=== PATIENT | female | born 1990 | race Caucasian/White ===

== ENCOUNTER 2016-05-14 21:24 | Emergency (ER) | payer MEDICAID, OTHER ==
[~2016-05-14] VITALS: Ht 157.5 cm; Wt 88.0 kg
[~2016-05-14 21:24] MED LIST: IBUP-1542 PO
[2016-05-14 21:39] VITALS: Ht 157.5 cm; Wt 88.0 kg
[2016-05-15] LABS: URINE BLOOD (Dip) POC Negative (NEGATIVE)
[2016-05-15] MEDS ORDERED: LIDOCAINE/MYLANTA 40 ML BTL PO ONE
--- NOTE | 2016-05-15 00:36 | RADRPT ---
PROCEDURE: XR Chest. CLINICAL INDICATION: Chest pain. TECHNIQUE: Portable AP view of the chest was obtained. COMPARISON: None. FINDINGS: The cardiomediastinal silhouette is within normal limits. The lungs are clear. There is no evidenc e for pleural effusion, pneumothorax or pulmonary vascular congestion. The osseous structures are i ntact with no evidence for acute abnormality. RPTAT:HJJR IMPRESSION: No evidence for acute intrathoracic pathology. Physician Roly Date Time Electronically viewed and signed by Physician Roly on 05/15/2016 00:35 JR/
[2016-05-15] MEDS ORDERED: ACET500C5 PO (00:59)
[2016-05-15 01:07] VITALS: BP 120/73; PULSE 64; RESP 20
--- NOTE | 2016-05-15 04:06 | ERD ---
ER Documentation Chief Complaint Date/Time DATE: 05/15/16 TIME: 04:01 Chief Complaint Chest pain radiating to the back since this morning HPI Patient is a 25 year old female who presents with epigastric pain radiating to her mid back. Patient states that the pain started this morning, however has now resolved. Patient states that she did have some shortness of breath when the pain was present, however her shortness of breath has now resolved. Patient denies any arm pain, diaphoresis, nausea, vomiting or LOC. Patient states that she has had this pain in the past, and it resolved by itself. Patient denies taking any medications. Patient reports eating spicy foods. Patient denies any new stress. Patient denies any OCP, recent prolonged sitting, recent travel, recent surgery, DVT or PE. ROS All systems reviewed and are negative except as per history of present illness. Medications Home Meds Active Scripts Acetaminophen* (Tylophen*) 500 Mg Capsule, 1 CAP PO Q6H Y for PAIN AND OR ELEVATED TEMP, #20 CAP Prov:CHRSITIANO WHITAKER PA-C 05/15/16 Ibuprofen* (Ibuprofen*) 600 Mg Tablet, 600 MG PO Q6, #20 TAB 0 Refills Prov:AMEE NOONAN MD 09/08/15 Allergies Allergies: Coded Allergies: No Known Allergy (Unverified , 09/04/15) PMhx/Soc Medical and Surgical Hx: pt denies Medical Hx, pt denies Surgical Hx Hx Alcohol Use: No Hx Substance Use: Yes (marijuana 1x/month) Hx Tobacco Use: No Smoking Status: Never smoker Physical Exam Vitals Vital Signs Date Time Temp Pulse Resp B/P Pulse Ox O2 Delivery O2 Flow Rate FiO2 05/15/16 01:07 64 20 120/73 98 Room Air 05/14/16 21:39 98.1 101 20 131/63 98 Physical Exam GENERAL: Well-developed, well-nourished female. Appears in no acute distress. HEAD: Normocephalic, atraumatic. EYES: Pupils are equally reactive bilaterally. EOMs grossly intact. No conjunctival erythema. ENT: Moist mucous membranes. No uvula deviation. No kissing tonsils. NECK: Supple. No meningismus. Normal range of motion of the neck. LUNG: Clear to auscultation bilaterally. No rhonchi, wheezing, rales or coarse breath sounds. HEART: Regular rate and rhythm. No murmurs, rubs or gallops. ABDOMEN: No scars, ecchymosis or rashes noted. Soft, nontender, and nondistended. Positive bowel sounds in all four quadrants. No rebound tenderness , no guarding. (-) McBurney's point tenderness. No CVA tenderness. BACK: No midline tenderness. EXTREMITIES: Equal pulses bilaterally. No peripheral clubbing, cyanosis or edema. No unilateral leg swelling. NEUROLOGIC: Alert and oriented. Moving all four extremities without any difficulty. Normal speech. Steady gait. SKIN: Normal color. Warm and dry. No rashes or lesions. Results 24 hrs Laboratory Tests Test 05/14/16 23:59 Bedside Urine Blood Negative Bedside Urine Glucose (UA) Negative Bedside Urine Ketones (LAB) Negative Bedside Urine Leukocyte Esterase (L Negative Bedside Urine Nitrite (LAB) Negative Bedside Urine Protein (LAB) Negative Bedside Urine pH (LAB) 7.0 Current Medications Medications (Trade) Dose Ordered Sig/Domenic Route PRN Reason Start Time Stop Time Status Last Admin Dose Admin Miscellaneous Medication (Gi Cocktail (2)) 40 ml ONCE ONCE PO 05/15/16 00:00 05/15/16 00:01 DC 05/15/16 00:06 Procedures/MDM ED COURSE: The patient was stable throughout ED course. I kept the patient and/or family informed of laboratory and diagnostic imaging results throughout the ED course. EKG: Read by Dr. Aldridge, attending physician. EKG shows normal sinus rhythm at a rate of 73 bpm No arrhythmias, acute ST elevations or T wave changes were noted. DIAGNOSTIC IMAGING: Read by radiologist. DIAGNOSTIC IMAGING REPORT Patient: ANAND PATTERSON : 1990 Age: 25 Sex: F MR #: [id number] DOS: 05/14/16 2334 Ordering MD: CHRISTIANO WHITAKER PA-C Location: [facility] Room/Bed: PROCEDURE: XR Chest. CLINICAL INDICATION: Chest pain. TECHNIQUE: Portable AP view of the chest was obtained. COMPARISON: None. FINDINGS: The cardiomediastinal silhouette is within normal limits. The lungs are clear. There is no evidence for pleural effusion, pneumothorax or pulmonary vascular congestion. The osseous structures are intact with no evidence for acute abnormality. RPTAT:HJJR IMPRESSION: No evidence for acute intrathoracic pathology. Physician Roly Date Time Electronically viewed and signed by Physician Roly on 05/15/2016 00:35 JR/ CC: CHRISTIANO WHITAKER PA-C PROCEDURES: None. MEDICATIONS GIVEN: GI Cocktail Patient tolerated medication well with no adverse reactions. MEDICAL DECISION MAKING: This is a 25 year old female who presents with lower chest pain radiating to her back. Patient states the chest pain and shortness of breath has now resolved. Patient denied any leg swelling, recent surgeries, travel, exogenous estrogen use. Vital signs were reviewed. Patient was afebrile. Patient was not hypoxic. Cardiac exam was normal. Lung exam was normal. EKG was within normal limits. Low suspicion for acute coronary syndrome, arrhythmia or pericarditis. CXR was within normal limits. Low suspicion for pneumothorax, pneumonia or pleural effusion. Urine dip was negative for acute infection. Urine was negative. Patient did report some improvement in symptoms after receiving GI cocktail, however she has not that her pain was already improved upon her arrival to the ED. Given these findings, the patient's presentation is most consistent with epigastric pain vs epigastric pain. Low suspicion for PE, DVT, ACS, pericarditis , pneumonia, pneumothorax, pleural effusion, pancreatitis. PRESCRIPTIONS: Tylenol DISCHARGE: At this time, patient is stable for discharge and outpatient management. I have instructed the patient to follow-up with his/her primary care physician in 1-2 days. If symptoms persist, patient may need to see a GI specialist or chemical pumper for further examinations and testing. I have instructed the patient to promptly return to the ER at any time for any new or worsening symptoms including increased increased pain, fever, nausea, vomiting, numbness, weakness, diaphoresis or LOC. The patient and/or family expressed understanding of and agreement with this plan. All questions were answered. Home care instructions were provided. Departure Diagnosis: Primary Impression: Epigastric pain Condition: Stable Patient Instructions: Epigastric Pain (Uncertain Cause) Referrals: COMMUNITY CLINICS YOU HAVE RECEIVED A MEDICAL SCREENING EXAM AND THE RESULTS INDICATE THAT YOU DO NOT HAVE A CONDITION THAT REQUIRES URGENT TREATMENT IN THE EMERGENCY DEPARTMENT. FURTHER EVALUATION AND TREATMENT OF YOUR CONDITION CAN WAIT UNTIL YOU ARE SEEN IN YOUR DOCTORS OFFICE WITHIN THE NEXT 1-2 DAYS. IT IS YOUR RESPONSIBILITY TO MAKE AN APPOINTMENT FOR FOLOW-UP CARE. IF YOU HAVE A PRIMARY DOCTOR --you should call your primary doctor and schedule an appointment IF YOU DO NOT HAVE A PRIMARY DOCTOR YOU CAN CALL OUR PHYSICIAN REFERRAL HOTLINE AT IF YOU CAN NOT AFFORD TO SEE A PHYSICIAN YOU CAN CHOSE FROM THE FOLLOWING [facility] [address] [facility] [address] [facility] [facility] [address] [facility] [address] [facility] [address] [facility]. [facility] [address] [facility]. [facility] YOU HAVE RECEIVED A MEDICAL SCREENING EXAM AND THE RESULTS INDICATE THAT YOU DO NOT HAVE A CONDITION THAT REQUIRES URGENT TREATMENT IN THE EMERGENCY DEPARTMENT. FURTHER EVALUATION AND TREATMENT OF YOUR CONDITION CAN WAIT UNTIL YOU ARE SEEN IN YOUR DOCTORS OFFICE WITHIN THE NEXT 1-2 DAYS. IT IS YOUR RESPONSIBILITY TO MAKE AN APPOINTMENT FOR FOLOW-UP CARE. IF YOU HAVE A PRIMARY DOCTOR --you should call your primary doctor and schedule and appointment IF YOU DO NOT HAVE A PRIMARY DOCTOR YOU CAN CALL OUR PHYSICIAN REFERRAL HOTLINE AT . IF YOU CAN NOT AFFORD TO SEE A PHYSICIAN YOU CAN CHOSE FROM THE FOLLOWING [facility] INSTITUTIONS: [facility] [address] [place] [address] [facility] [address] [place] [address] [facility] [address] [place] [address] Additional Instructions: Call your primary care doctor TOMORROW for an appointment during the next 1-2 days.See the doctor sooner or return here if your condition worsens before your appointment time. CHRISTIANO WHITAKER PA-C May 15, 2016 04:06
== END 2016-05-15 01:09 | disposition home or self-care (01) ==
LOC: FTE 21:24
DX: R10.13 Epigastric pain (principal)
CPT/HCPCS: 71010; 81003; 93005; Z7502; Z7610

== ENCOUNTER 2016-07-31 07:40 | Inpatient (IN) | payer MEDICAID, OTHER ==
[~2016-07-31] VITALS: Ht 157.5 cm; Wt 92.1 kg
[~2016-07-31 07:40] MED LIST changes: +ACET500C5 PO
[2016-07-31] MEDS ORDERED: ONDANSETRON 4 MG INJ IV STA ×2 (08:19→10:26)
[2016-07-31] MEDS ORDERED: FAMOTIDINE 20 MG INJ IV STA (08:19)
[2016-07-31] MEDS ORDERED: morphine 4 MG/ML VIAL IV STA ×2 (08:19→10:26)
--- NOTE | 2016-07-31 08:25 | ERD ---
ER Documentation Chief Complaint Date/Time DATE: 07/31/16 TIME: 08:22 Chief Complaint abd pain, back pain, n/v. hx gastritis HPI This is a 26-year-old female who presents the emergency department today complaining of upper abdominal pain that radiates around her back. States that she has some nausea and vomiting. States that she was told on her last visit that she might have gastritis. States that this is the third time this has happened since she last left the hospital. States she does not have a primary care physician. Denies any fevers or chills, chest pain or shortness of breath. ROS All systems reviewed and are negative except as per history of present illness. Medications Home Meds Active Scripts Acetaminophen* (Tylophen*) 500 Mg Capsule, 1 CAP PO Q6H Y for PAIN AND OR ELEVATED TEMP, #20 CAP Prov:CHRISTIANO WHITAKER PA-C 05/15/16 Ibuprofen* (Ibuprofen*) 600 Mg Tablet, 600 MG PO Q6, #20 TAB 0 Refills Prov:AMEE NOONAN MD 09/08/15 Allergies Allergies: Coded Allergies: No Known Allergy (Unverified , 09/04/15) PMhx/Soc Medical and Surgical Hx: pt denies Medical Hx, pt denies Surgical Hx Hx Alcohol Use: No Hx Substance Use: Yes (marijuana 1x/month) Hx Tobacco Use: No Smoking Status: Never smoker Physical Exam Vitals Vital Signs Date Time Temp Pulse Resp B/P Pulse Ox O2 Delivery O2 Flow Rate FiO2 07/31/16 07:43 97.5 63 20 122/65 98 Physical Exam Const: Obese, no acute distress Head: Atraumatic Eyes: Normal Conjunctiva ENT: Normal External Ears, Nose and Mouth. Neck: Full range of motion..~ No meningismus. Resp: Clear to auscultation bilaterally Cardio: Regular rate and rhythm, no murmurs Abd: Soft, epigastric and right upper quadrant tenderness non distended. Normal bowel sounds. No right lower quadrant pain. No tenderness McBurney's. Skin: No petechiae or rashes Back: No midline or flank tenderness. No CVA tenderness. Ext: No cyanosis, or edema Neur: Awake and alert Psych: Normal Mood and Affect Result Diagram: 07/31/16 0840 07/31/16 0840 Results 24 hrs Laboratory Tests Test 07/31/16 08:32 07/31/16 08:40 Urine Color YELLOW Urine Clarity CLEAR Urine pH 5.5 Urine Specific [place] >=1.030 Urine Ketones TRACE Urine Nitrite NEGATIVE Urine Bilirubin 1+ Urine Ictotest NEGATIVE Urine Urobilinogen 0.2 E.U./dL Urine Leukocyte Esterase NEGATIVE Urine Microscopic RBC 0-2/HPF Urine Microscopic WBC 0-2/HPF Urine Squamous Epithelial Cells FEW Urine Amorphous Urates MODERATE Urine Bacteria OCCASIONAL Urine Mucus OCCASIONAL Urine Hemoglobin TRACE Urine Glucose NEGATIVE% Urine Total Protein 1+ White Blood Count 11.810^3/ul Red Blood Count 4.9310^6/ul Hemoglobin 13.6g/dl Hematocrit 41.9% Mean Corpuscular Volume 85.0fl Mean Corpuscular Hemoglobin 27.6pg Mean Corpuscular Hemoglobin Concent 32.5g/dl Red Cell Distribution Width 13.9% Platelet Count 46383^3/UL Mean Platelet Volume 11.0fl Neutrophils % 82.7% Lymphocytes % 12.2% Monocytes % 3.8% Eosinophils % 0.6% Basophils % 0.3% Nucleated Red Blood Cells % 0.0/100WBC Neutrophils # 9.710^3/ul Lymphocytes # 1.410^3/ul Monocytes # 0.510^3/ul Eosinophils # 0.110^3/ul Basophils # 0.010^3/ul Nucleated Red Blood Cells # 0.010^3/ul Sodium Level 146mmol/L Potassium Level 3.6mmol/L Chloride Level 106mmol/L Carbon Dioxide Level 27mmol/L Anion Gap 17 Blood Urea Nitrogen 8mg/dl Creatinine 0.58mg/dl Glucose Level 112mg/dl Calcium Level 9.6mg/dl Total Bilirubin 0.1mg/dl Direct Bilirubin 0.00mg/dl Indirect Bilirubin 0.1mg/dl Aspartate Amino Transf (AST/SGOT) 25IU/L Alanine Aminotransferase (ALT/SGPT) 57IU/L Alkaline Phosphatase 107IU/L Total Protein 8.6g/dl Albumin 5.1g/dl Globulin 3.50g/dl Albumin/Globulin Ratio 1.45 Lipase 88U/L Current Medications Medications (Trade) Dose Ordered Sig/Domenic Route PRN Reason Start Time Stop Time Status Last Admin Dose Admin Morphine Sulfate (morphine) 4 mg ONCE STAT IV 07/31/16 08:19 07/31/16 08:22 DC 6/4/17 08:41 Ondansetron HCl (Zofran Inj) 4 mg ONCE STAT IV 07/31/16 08:19 07/31/16 08:22 DC 07/31/16 08:41 Famotidine (Pepcid Iv) 20 mg ONCE STAT IV 07/31/16 08:19 07/31/16 08:22 DC 07/31/16 08:41 Miscellaneous Medication (Gi Cocktail (2)) 40 ml ONCE ONCE PO 07/31/16 08:30 07/31/16 08:31 DC 07/31/16 08:41 Morphine Sulfate (morphine) 4 mg ONCE STAT IV 07/31/16 10:26 07/31/16 10:27 DC 07/31/16 10:45 Ondansetron HCl 4 mg 4 mg ONCE STAT IV 07/31/16 10:26 07/31/16 10:27 DC 07/31/16 10:45 Sodium Chloride (NS) 1,000 ml @ 1,000 mls/hr Q1H ONCE IV 07/31/16 10:30 07/31/16 11:29 07/31/16 10:44 DIAGNOSTIC IMAGING REPORT Patient: ANAND PATTERSON : 1990 Age: 26 Sex: F MR #: [id number] DOS: 07/31/16 0819 Ordering MD: JOSR MURO PA-C Location: REPLACED BY [facility] Room/Bed: PROCEDURE: US Abdomen (Right upper quadrant) CLINICAL INDICATION: Abdominal pain. TECHNIQUE: Multiple real-time longitudinal and transverse images were acquired of the patient's right upper quadrant utilizing a curved array transducer. COMPARISON: None. FINDINGS: Liver is normal in size and echogenicity. No focal liver mass. Portal vein demonstrates hepatopetal flow. Gallbladder demonstrate multiple gallstones. There is no gallbladder wall thickening or pericholecystic fluid. There is extrahepatic bile duct dilatation with common bile duct measuring up to 10 mm Pancreas is partially visualized and grossly unremarkable. Right kidney demonstrates no hydronephrosis or nephrolithiasis. No ascites. Proximal aorta and IVC are unremarkable. MEASUREMENTS: Liver: 15.5 cm Common Duct: 1.0 cm Right Kidney: 10.3 cm IMPRESSION: Sludge/small stones in the gallbladder without gallbladder wall thickening or inflammation. Indeterminate extrahepatic bile duct dilatation with common bile duct measuring up to 10 mm. Consider MRCP, especially if correlation with LFTs suggest cholestasis. RPTAT: EE .Arnoldo Yeh MD, Date Time Electronically viewed and signed by .Arnoldo Yeh MD, on 07/31/2016 09:24 .C/ CC: JOSR MURO PA-C Procedures/[facility] This 26-year-old female who presents to the emergency department today complaining of abdominal pain that radiates around to her back. Upon review of patient's medical records patient was seen here May 14, 2016 with similar symptoms however she appeared to be complaining somewhat more of chest and back pain at that time and an x-ray was done of her chest that was negative. Patient had been given a GI cocktail as well. Today on physical exam patient has some epigastric and right upper quadrant pain. I did obtain laboratory work as well as an ultrasound Laboratory work shows a mildly elevated white blood cell count. She is not anemic. Platelets are within normal limits. Sodium is mildly elevated otherwise electrolytes are within normal limits. Glucose is within normal limits. Liver functions within normal limits. Bilirubin is not elevated. Lipase is within normal limits. Alk phos is within normal limits. UA is negative for infection. Urine test is negative. Right upper quadrant ultrasound shows sludge and small stones in the gallbladder without gallbladder wall thickening or inflammation. There is indeterminate extrahepatic bile duct dilatation with common bile duct measuring up to 10 mm. Consider MRCP especially correlation with LFTs suggest: cholestasis Patient symptoms at this time is consistent with gallstones and likely choledocholithiasis. Patient was given morphine, IV fluids, Pepcid, Zofran, GI cocktail here in the emergency department and symptoms persisted. I discussed the patient with Dr. Nelson he has recommended that the patient be admitted for MRCP. Dr. Nelson asked me to call the admitting panel physician. I spoke to Dr. Gita Yang who has accepted the patient. She does not feel that GI specialist needs to be called immediately. She will notify Dr. Contreras and Dr. Contreras will see the patient here in the ER. I have explained all results to the patient and patient has agreed to be admitted. Patient will be admitted to [facility]. Any further orders placed or documentation will be placed by Dr. Nelson or the admitting physician Departure Diagnosis: Primary Impression: Gallstones Additional Impression: Choledocholithiasis Condition: JOSR Reilly PA-C Jul 31, 2016 08:25
[2016-07-31] MEDS ORDERED: LIDOCAINE/MYLANTA 40 ML BTL PO ONE (08:30)
[2016-07-31 08:51] LABS: ADD SCAN DIFF NO
[2016-07-31 09:01] LABS: BASOPHILS % 0.3 % (0.0-2.0); EOSINOPHILS # 0.1 10^3/ul (0.0-0.5); EOSINOPHILS % 0.6 % (0.0-7.0); HEMATOCRIT 41.9 % (37.0-47.0); HEMOGLOBIN 13.6 g/dl (12.0-16.0); LYMPHOCYTES # 1.4 10^3/ul (0.8-2.9); LYMPHOCYTES % 12.2 % (15.0-51.0); MEAN CORPUSCULAR HEMOGLOBIN 27.6 pg (29.0-33.0); MEAN CORPUSCULAR HGB CONC 32.5 g/dl (32.0-37.0); MONOCYTE # 0.5 10^3/ul (0.3-0.9); MONOCYTES % 3.8 % (0.0-11.0); NEUTROPHIL # 9.7 10^3/ul (1.6-7.5); NEUTROPHILS % 82.7 % (39.0-77.0); PLATELET COUNT 304 10^3/UL (140-415); RED BLOOD COUNT 4.93 10^6/ul (4.20-5.40); RED CELL DISTRIBUTION WIDTH 13.9 % (11.5-14.5); WHITE BLOOD COUNT 11.8 10^3/ul (4.8-10.8)
[2016-07-31 09:07] LABS: ADD UMIC YES; URINE BILIRUBIN (Dip) 1+ (NEGATIVE); URINE BLOOD (Dip) TRACE (NEGATIVE); URINE COLOR YELLOW (YELLOW); URINE GLUCOSE (Dip) NEGATIVE (NEGATIVE); URINE KETONES (Dip) TRACE (NEGATIVE); URINE LEUKOCYTE ESTERASE (Dip) NEGATIVE (NEGATIVE); URINE NITRITE (Dip) NEGATIVE (NEGATIVE); URINE TOTAL PROTEIN (Dip) 1+ (NEGATIVE); URINE UROBILINOGEN (Dip) 0.2 E.U./dL (0.1-1.0)
--- NOTE | 2016-07-31 09:19 | RADRPT ---
PROCEDURE: US Abdomen (Right upper quadrant) CLINICAL INDICATION: Abdominal pain. TECHNIQUE: Multiple real-time longitudinal and transverse images were acquired of the patient's ri ght upper quadrant utilizing a curved array transducer. COMPARISON: None. FINDINGS: Liver is normal in size and echogenicity. No focal liver mass. Portal vein demonstrates hepatopetal flow. Gallbladder demonstrate multiple gallstones. There is no gallbladder wall thickening or pericholecy stic fluid. There is extrahepatic bile duct dilatation with common bile duct measuring up to 10 mm Pancreas is partially visualized and grossly unremarkable. Right kidney demonstrates no hydronephrosis or nephrolithiasis. No ascites. Proximal aorta and IVC are unremarkable. MEASUREMENTS: Liver: 15.5 cm Common Duct: 1.0 cm Right Kidney: 10.3 cm IMPRESSION: Sludge/small stones in the gallbladder without gallbladder wall thickening or inflammation. Indeterminate extrahepatic bile duct dilatation with common bile duct measuring up to 10 mm. Consid er MRCP, especially if correlation with LFTs suggest cholestasis. RPTAT: EE .Arnoldo Yeh MD, Date Time Electronically viewed and signed by .Arnoldo Yeh MD, on 07/31/2016 09:24 .C/
[2016-07-31 09:20] LABS: ALBUMIN 5.1 g/dl (3.3-4.9); ALBUMIN/GLOBULIN RATIO 1.45; BILIRUBIN,INDIRECT 0.1 mg/dl (0-1.1); BILIRUBIN,TOTAL 0.1 mg/dl (0.2-1.3); CALCIUM 9.6 mg/dl (8.4-10.2); CREATININE 0.58 mg/dl (0.44-1.00); POTASSIUM 3.6 mmol/L (3.5-5.1); TOTAL PROTEIN 8.6 g/dl (6.1-8.1)
[2016-07-31 09:40] LABS: ICTOTEST NEGATIVE (NEGATIVE); SQUAMOUS EPITHELIAL CELL,UR FEW; URINE RBCS 0-2 /HPF (0)
[2016-07-31 09:41] LABS: BACTERIA,URINE OCCASIONAL; MUCUS,URINE OCCASIONAL
[2016-07-31] MEDS ORDERED: SOD CHLORIDE 0.9% 1,000 ML IV ONE (10:30)
--- NOTE | 2016-07-31 14:36 | HP ---
Date/Time of Note Date/Time of Note DATE: 07/31/16 TIME: 14:29 Assessment/Plan VTE Prophylaxis VTE Prophylaxis Intervention: ambulation, SCD's Assessment/Plan Assessment/Plan 26-year-old female who presents with epigastric/upper abdominal pain managed for the followin. Acute abdominal pain likely secondary to #2 #2 2. Cholelithiasis with common bile duct dilatation rule out choledocholithiasis * There is no evidence of gallbladder wall thickening or pericholecystic fluid to suggest cholecystitis 3. Uricosuria rule out gout 4. Ketonuria likely secondary to dehydration from nausea and vomiting 5. Mild leukocytosis likely reactive 6. Social marijuana use PLAN: * Admit / IVF / CLD / MRCP / Uric acid levels * Surgical consult and probable GI consult * PRN pain control/ antiemetics/ antipyretics/ supportive care Further interventions per clinical course HPI/ROS Admit Date/Time Admit Date/Time July 31, 2016 Hx of Present Illness PRESENTING COMPLAINT: abd pain HISTORY OF PRESENTING COMPLAINT:This is a 26-year-old female who presented to the ER with abdominal pain that has been going on since April 2017. The patient was seen here back in April diagnosed with gastritis patient states since then she has been having on and off abdominal pain. Pain is located in her epigastric region and radiates to her back. It is associated with nausea and vomiting. She however denies black stools or blood in her stool, she also denies blood in her vomit. She denies fever denies chest pain, denies shortness of breath. ROS ROS: CONSTITUTIONAL: denies fever, chills, weight loss, weight gain HEENT: denies headaches, any vertigo, any sore throat or rhinorrhea. Eyes: No double or blurred vision or eye pain. CARDIOVASCULAR: no chest discomfort, chest pain, irregular rhythm, tachycardia or diaphoresis. RESPIRATORY: denies cough or shortness of breath or wheezing. GENITOURINARY: denies dysuria, frequency, urgency or hematuria. MUSCULOSKELETAL: also denies myalgias, arthralgias or edema. SKIN: denies rash or jaundice NEUROLOGIC: denies weakness, dizziness, focal neurological change or headache. PSYCHIATRIC: denies history of depression in the past, any suicidal ideation. substance abuse. ENDOCRINE: denies polyuria, polydipsia or hot or cold intolerance. HEMATOLOGIC: denies history of easy bruising, anemia or eczema. PMH/Family/Social Past Medical History Medical History: no pertinent history Past Surgical History Past Surgical Hx: no surgical history Family History Significant Family History: no pertinent family hx Social History Alcohol Use: none Smoking Status: Never smoker Drug Use: marijuana Exam/Review of Systems Vital Signs Vitals VS - Last 72 Hours, by Label Date Time Temp Pulse Resp B/P Pulse Ox O2 Delivery O2 Flow Rate FiO2 07/31/16 12:17 62 18 111/56 98 Room Air 07/31/16 10:45 75 18 105/51 98 Room Air 07/31/16 07:43 97.5 63 20 122/65 98 Vital Signs Date Time Temp Pulse Resp B/P Pulse Ox O2 Delivery O2 Flow Rate FiO2 07/31/16 12:17 62 18 111/56 98 Room Air 07/31/16 07:43 97.5 Exam Exam GENERAL: Patient is alert, oriented x 3, in no apparent distress; does not appear acutely or chronically ill. Patient is able to sit up unassisted.Patient makes good eye contact, is conversant, interactive, coherent. Patient appears calm and comfortable and is able to follow commands. HEENT: Oropharynx is clear. There is no carotid bruit, no masses. Patient's pupils are equal, round and reactive to light bilaterally. Extraocular motions are intact. There is no scleral icterus. There is no facial asymmetry. NECK: Supple. LUNGS: Clear to auscultation bilaterally with good air entry. No Wheezes or crackles. HEART: S1, S2. No murmur, gallops or rubs. Regular rate and rhythm. ABDOMEN: Soft, epigastric and right upper quadrant tenderness non distended. Normal bowel sounds. No right lower quadrant pain. No tenderness McBurney's. BACK: no costovertebral angle tenderness. GENITOURINARY: Deferred. EXTREMITIES: No edema. There is no cyanosis, clubbing. There are 2+ pulses bilaterally distally. NEUROLOGIC: The patient has no lateralizing signs. Cranial nerves II-XII are intact. SKIN: Otherwise, unremarkable. Labs Result Diagram: 07/31/16 0840 07/31/16 0840 Procedures Procedures Laboratory Tests Test 07/31/16 08:32 07/31/16 08:40 Urine Color YELLOW Urine Clarity CLEAR Urine pH 5.5 Urine Specific [place] >=1.030 Urine Ketones TRACE Urine Nitrite NEGATIVE Urine Bilirubin 1+ Urine Ictotest NEGATIVE Urine Urobilinogen 0.2 E.U./dL Urine Leukocyte Esterase NEGATIVE Urine Microscopic RBC 0-2/HPF Urine Microscopic WBC 0-2/HPF Urine Squamous Epithelial Cells FEW Urine Amorphous Urates MODERATE Urine Bacteria OCCASIONAL Urine Mucus OCCASIONAL Urine Hemoglobin TRACE Urine Glucose NEGATIVE% Urine Total Protein 1+ White Blood Count 11.810^3/ul Red Blood Count 4.9310^6/ul Hemoglobin 13.6g/dl Hematocrit 41.9% Mean Corpuscular Volume 85.0fl Mean Corpuscular Hemoglobin 27.6pg Mean Corpuscular Hemoglobin Concent 32.5g/dl Red Cell Distribution Width 13.9% Platelet Count 95926^3/UL Mean Platelet Volume 11.0fl Neutrophils % 82.7% Lymphocytes % 12.2% Monocytes % 3.8% Eosinophils % 0.6% Basophils % 0.3% Nucleated Red Blood Cells % 0.0/100WBC Neutrophils # 9.710^3/ul Lymphocytes # 1.410^3/ul Monocytes # 0.510^3/ul Eosinophils # 0.110^3/ul Basophils # 0.010^3/ul Nucleated Red Blood Cells # 0.010^3/ul Sodium Level 146mmol/L Potassium Level 3.6mmol/L Chloride Level 106mmol/L Carbon Dioxide Level 27mmol/L Anion Gap 17 Blood Urea Nitrogen 8mg/dl Creatinine 0.58mg/dl Glucose Level 112mg/dl Calcium Level 9.6mg/dl Total Bilirubin 0.1mg/dl Direct Bilirubin 0.00mg/dl Indirect Bilirubin 0.1mg/dl Aspartate Amino Transf (AST/SGOT) 25IU/L Alanine Aminotransferase (ALT/SGPT) 57IU/L Alkaline Phosphatase 107IU/L Total Protein 8.6g/dl Albumin 5.1g/dl Globulin 3.50g/dl Albumin/Globulin Ratio 1.45 Lipase 88U/L Current Medications Medications (Trade) Dose Ordered Sig/Domenic Route PRN Reason Start Time Stop Time Status Last Admin Dose Admin Morphine Sulfate (morphine) 4 mg ONCE STAT IV 07/31/16 08:19 07/31/16 08:22 DC 07/31/16 08:41 4 MG Ondansetron HCl (Zofran Inj) 4 mg ONCE STAT IV 07/31/16 08:19 07/31/16 08:22 DC 07/31/16 08:41 4 MG Famotidine (Pepcid Iv) 20 mg ONCE STAT IV 07/31/16 08:19 07/31/16 08:22 DC 07/31/16 08:41 20 MG Miscellaneous Medication (Gi Cocktail (2)) 40 ml ONCE ONCE PO 07/31/16 08:30 07/31/16 08:31 DC 07/31/16 08:41 40 ML Morphine Sulfate (morphine) 4 mg ONCE STAT IV 07/31/16 10:26 07/31/16 10:27 DC 07/31/16 10:45 4 MG Ondansetron HCl 4 mg 4 mg ONCE STAT IV 07/31/16 10:26 07/31/16 10:27 DC 07/31/16 10:45 4 MG Sodium Chloride (NS) 1,000 ml @ 1,000 mls/hr Q1H ONCE IV 07/31/16 10:30 07/31/16 11:29 DC 07/31/16 10:44 1,000 MLS/HR PROCEDURE: US Abdomen (Right upper quadrant) CLINICAL INDICATION: Abdominal pain. TECHNIQUE: Multiple real-time longitudinal and transverse images were acquired of the patient's right upper quadrant utilizing a curved array transducer. COMPARISON: None. FINDINGS: Liver is normal in size and echogenicity. No focal liver mass. Portal vein demonstrates hepatopetal flow. Gallbladder demonstrate multiple gallstones. There is no gallbladder wall thickening or pericholecystic fluid. There is extrahepatic bile duct dilatation with common bile duct measuring up to 10 mm Pancreas is partially visualized and grossly unremarkable. Right kidney demonstrates no hydronephrosis or nephrolithiasis. No ascites. Proximal aorta and IVC are unremarkable. MEASUREMENTS: Liver: 15.5 cm Common Duct: 1.0 cm Right Kidney: 10.3 cm IMPRESSION: Sludge/small stones in the gallbladder without gallbladder wall thickening or inflammation. Indeterminate extrahepatic bile duct dilatation with common bile duct measuring up to 10 mm. Consider MRCP, especially if correlation with LFTs suggest cholestasis. RPTAT: EE .Arnoldo Yeh MD, MD Date Time Electronically viewed and signed by .Arnoldo Yeh MD, on 07/31/2016 09:24 .C/ CC: JOSR MURO PA-C, BOLATITO M. Jul 31, 2016 14:36
[2016-07-31 17:45] VITALS: BP 114/65; PULSE 70; RESP 18
[2016-07-31] MEDS ORDERED: HYDROCODONE/APAP (5/325) TAB PO PRN (18:30)
[2016-07-31] MEDS ORDERED: MAGNESIUM HYDROXIDE 30ML CUP PO PRN (18:30)
[2016-07-31] MEDS ORDERED: ONDANSETRON 4 MG TAB PO PRN (18:30)
[2016-07-31] MEDS ORDERED: ONDANSETRON 4 MG INJ IV PRN (18:30)
[2016-07-31] MEDS ORDERED: ACETAMINOPHEN 325 MG TAB PO PRN (18:30)
[2016-07-31] MEDS ORDERED: NACL 0.9% 3 ML SYG IV SCH (18:30)
[2016-07-31] MEDS ORDERED: BISACODYL (EC) 5 MG TAB PO PRN (18:30)
[2016-07-31] MEDS ORDERED: DOCUSATE SODIUM 100 MG CAP PO PRN (18:30)
[2016-07-31] MEDS ORDERED: morphine 2 MG INJ IV PRN (18:30)
[2016-07-31] MEDS: SOD CHLORIDE 0.9% 1,000 ML IV SCH (18:39)
[2016-07-31 19:22] VITALS: BP 102/57; RESP 18
[2016-07-31 21:00] VITALS: Ht 157.5 cm; Wt 92.1 kg
[2016-08-01] MEDS: SOD CHLORIDE 0.9% 1,000 ML IV SCH ×2 (04:22→13:03)
[2016-08-01 07:08] LABS: ADD SCAN DIFF NO
[2016-08-01 07:17] LABS: BASOPHILS % 0.5 % (0.0-2.0); EOSINOPHILS # 0.3 10^3/ul (0.0-0.5); EOSINOPHILS % 3.8 % (0.0-7.0); HEMATOCRIT 35.6 % (37.0-47.0); HEMOGLOBIN 11.6 g/dl (12.0-16.0); LYMPHOCYTES # 2.3 10^3/ul (0.8-2.9); LYMPHOCYTES % 30.9 % (15.0-51.0); MEAN CORPUSCULAR HEMOGLOBIN 28.4 pg (29.0-33.0); MEAN CORPUSCULAR HGB CONC 32.6 g/dl (32.0-37.0); MEAN PLATELET VOLUME 11.2 fl (7.4-10.4); MONOCYTE # 0.5 10^3/ul (0.3-0.9); MONOCYTES % 6.7 % (0.0-11.0); NEUTROPHIL # 4.3 10^3/ul (1.6-7.5); NEUTROPHILS % 57.8 % (39.0-77.0); PLATELET COUNT 228 10^3/UL (140-415); RED BLOOD COUNT 4.09 10^6/ul (4.20-5.40); RED CELL DISTRIBUTION WIDTH 13.9 % (11.5-14.5); WHITE BLOOD COUNT 7.4 10^3/ul (4.8-10.8)
[2016-08-01 07:39] VITALS: BP 111/55; RESP 19
[2016-08-01 07:44] LABS: ALBUMIN 3.7 g/dl (3.3-4.9); BILIRUBIN,INDIRECT 0.1 mg/dl (0-1.1); BILIRUBIN,TOTAL 0.1 mg/dl (0.2-1.3); CALCIUM 8.6 mg/dl (8.4-10.2); CHOL/HDL RATIO 5.6 RATIO; CREATININE 0.63 mg/dl (0.44-1.00); MAGNESIUM 1.9 mg/dl (1.7-2.5); TOTAL PROTEIN 6.3 g/dl (6.1-8.1); URIC ACID 3.7 mg/dl (3.1-7.9)
[2016-08-01] MEDS ORDERED: ENOXAPARIN 40 MG/0.4 ML SYG SC SCH (09:00)
--- NOTE | 2016-08-01 14:30 | RADRPT ---
PROCEDURE: MR Abdomen and MRCP. CLINICAL INDICATION: Dilated bile duct. TECHNIQUE: MRI abdomen without contrast and MRCP was performed on a high field scanner. 3-D coron al rotating MIP images of the biliary tree are available for review. COMPARISON: Correlation with ultrasound from 07/31/2016. FINDINGS: MRI Abdomen: The liver is normal in size and homogeneous in signal intensity. There is normal signal intensity w ithin the liver. No liver mass lesion or intrahepatic biliary dilatation is seen. The spleen is no rmal in size and homogeneous in signal intensity. The stomach is partially collapsed but grossly un remarkable. The pancreas, as visualized, is equally unremarkable. No pancreatic lesion is seen. T he adrenal glands and kidneys are symmetrically normal. The aorta is of normal caliber. There is n o retroperitoneal lymphadenopathy. The bowel and mesentery, as visualized, are all unremarkable. MRCP: Multiple small stones are present within the gallbladder measuring up to 4 mm in diameter. No peric holecystic inflammatory changes seen. The gallbladder is not distended. The biliary tree is not dila nick. No intrahepatic nor extrahepatic biliary dilatation is present. The proximal common bile duct measures 4 mm in diameter and tapers smoothly towards the ampulla. The pancreatic duct is not dila nick. IMPRESSION: Cholelithiasis without evidence of cholecystitis, choledocholithiasis, or biliary obstruction. The previously seen CBD dilatation has resolved and may have been secondary to recently passed biliary c alculus. RPTAT: JJ .Raghavendra Cantor MD, Date Time Electronically viewed and signed by .Raghavendra Cantor MD, MD on 08/01/2016 14:29 .A/
--- NOTE | 2016-08-01 16:25 | PDOCDIS ---
Discharge Instructions CONDITION Patient Condition: Good HOME CARE INSTRUCTIONS: Diet Instructions: Regular ACTIVITY: Activity Restrictions: No Restrictions FOLLOW UP/APPOINTMENTS Appointments FOLLOW UP WITH YOUR PRIMARY CARE PHYSICIAN IN 1-2 WEEKS FLAVIA ANGLIN Aug 01, 2016 16:24
--- NOTE | 2016-08-01 17:40 | CONS ---
Date/Time of Note Date/Time of Note DATE: 08/01/16 TIME: 17:31 Assessment/Plan Assessment/Plan Additional Assessment/Plan Assessment: Recurrent right upper quadrant/epigastric pain Symptomatic cholelithiasis/no evidence of choledocholithiasis Moderate obesity Plan: Considered cholecystectomy for patient with recurrent symptoms and evidence of cholelithiasis HIDA scan Surgical consult Consultation Date/Type/Reason Admit Date/Time July 31, 2016 Date of Consultation: Aug 01, 2016 Type of Consultation: Gastroenterology Reason for Consultation Right upper quadrant/epigastric abdominal pain Hx of Present Illness 26-year-old female hospitalized with complaints of epigastric abdominal pain radiating towards the right upper quadrant and back. The patient reports this pain has been recurrent over the last few years has been told to have gastritis and has been treated with ibuprofen and antacids to control the pain. She has never had endoscopic evaluation. On this occasion she had an ultrasound that showed cholelithiasis and initially dilated common bile duct. An MRCP was obtained MRCP disclose no evidence of choledocholithiasis or dilatation of the biliary tree furthermore the liver function tests have been entirely normal throughout her hospitalization. The patient reports symptomatic improvement but given her recurrent history it would be advisable to address what appears to be symptomatic cholelithiasis. Constitutional: improved, no complaints Eyes: no complaints ENT: no complaints Respiratory: no complaints Cardiovascular: no complaints Gastrointestinal: No constipation, No decreased appetite, No diarrhea, No nausea, No pain, No vomiting Genitourinary: no complaints Musculoskeletal: no complaints Skin: no complaints Neurologic: no complaints Endocrine: no complaints Lymphatic: no complaints Psychological: nl mood/affect, no complaints Immunologic: no complaints Past Medical History Medical History: no pertinent history Past Surgical History Past Surgical Hx: no surgical history Family History Significant Family History: no pertinent family hx Social History Alcohol Use: none Smoking Status: Never smoker Drug Use: none, marijuana Exam/Review of Systems Vital Signs Vitals Vital Signs Date Time Temp Pulse Resp B/P Pulse Ox O2 Delivery O2 Flow Rate FiO2 08/01/16 07:39 98.5 69 19 111/55 96 07/31/16 17:45 Room Air Intake and Output 07/31/16 07/31/16 08/01/16 15:00 23:00 07:00 Intake Total 1650 ml Balance 1650 ml Exam Constitutional: alert, obese, oriented, well developed Head: atraumatic, normocephalic Eyes: EOMI, PERRL, nl conjunctiva, nl lids, nl sclera Neck: non-tender, supple Respiratory: clear to auscultation, normal air movement Cardiovascular: nl pulses, regular rate and rhythm Gastrointestinal: bowel sounds, non-tender, soft, No distended, No mass, No rebound or guarding Musculoskeletal: nl extremities to inspection Extremities: normal pulses Skin: nl turgor, No rash or lesions Lymph: nl lymph nodes Results Result Diagram: 08/01/1661908/01/16 0620 Results 24 hrs Laboratory Tests Test 08/01/16 06:20 White Blood Count 7.4 # Red Blood Count 4.09 L Hemoglobin 11.6 L Hematocrit 35.6 L Mean Corpuscular Volume 87.0 Mean Corpuscular Hemoglobin 28.4 L Mean Corpuscular Hemoglobin Concent 32.6 Red Cell Distribution Width 13.9 Platelet Count 228 # Mean Platelet Volume 11.2 H Neutrophils % 57.8 Lymphocytes % 30.9 Monocytes % 6.7 Eosinophils % 3.8 Basophils % 0.5 Nucleated Red Blood Cells % 0.0 Neutrophils # 4.3 Lymphocytes # 2.3 Monocytes # 0.5 Eosinophils # 0.3 Basophils # 0.0 Nucleated Red Blood Cells # 0.0 Sodium Level 143 Potassium Level 4.0 Chloride Level 108 Carbon Dioxide Level 28 Anion Gap 11 Blood Urea Nitrogen 6 L Creatinine 0.63 Glucose Level 83 Uric Acid 3.7 Calcium Level 8.6 Magnesium Level 1.9 Total Bilirubin 0.1 L Direct Bilirubin 0.00 Indirect Bilirubin 0.1 Aspartate Amino Transf (AST/SGOT) 18 Alanine Aminotransferase (ALT/SGPT) 43 Alkaline Phosphatase 74 Total Protein 6.3 # Albumin 3.7 # Triglycerides Level 119 Cholesterol Level 129 LDL Cholesterol, Calculated 82 HDL Cholesterol 23 L Cholesterol/HDL Ratio 5.6 Medications Medications Current Medications Ondansetron HCl (Zofran Tab) 4 mg Q6H PRN PO NAUSEA AND/OR VOMITING; Start 07/31 at 18:30 Ondansetron HCl (Zofran Inj) 4 mg Q6H PRN IV NAUSEA AND/OR VOMITING; Start 07/31 at 18:30 Acetaminophen (Tylenol Tab) 650 mg Q6H PRN PO PAIN LEVEL 1-3 OR FEVER Last administered on 07/31/16t 21:08; Admin Dose 650 MG; Start 07/31/16 at 18:30 Acetaminophen/ Hydrocodone Bitart ([place] (5/325)) 1 tab Q6H PRN PO MODERATE PAIN LEVEL 4-6; Start 07/31/16 at 18:30 Morphine Sulfate (morphine) 2 mg Q4H PRN IV SEVERE PAIN LEVEL 7-10; Start at 18:30 Docusate Sodium (Colace) 100 mg Q12H PRN PO CONSTIPATION; Start 07/31/16 at 18: 30 Magnesium Hydroxide (Milk Of Mag) 30 ml DAILY PRN PO CONSTIPATION; Start at 18:30 Bisacodyl (Dulcolax) 5 mg DAILY PRN PO CONSTIPATION; Start 07/31/16 at 18:30 Enoxaparin Sodium 40 mg 40 mg DAILY SC ; Start 08/01/16 at 09:00 Sodium Chloride (NS) 1,000 ml @ 125 mls/hr Q8H IV Last administered on t 13:03; Admin Dose 125 MLS/HR; Start 07/31/16 at 18:30 Pantoprazole (Protonix Iv) 40 mg DAILY@06 IV ; Start 08/02/16 at 06:00 COURTNEY MCCLELLAND MD Aug 01, 2016 17:40
--- NOTE | 2016-08-01 21:38 | DS ---
DATE OF ADMISSION: 07/31/2016 DATE OF DISCHARGE: 08/01/2016 DISCHARGE DIAGNOSES: 1. Abdominal pain, likely secondary to choledocholithiasis, now resolved with likely passing of valerie iary stone. 2. Obesity. Lifestyle changes advised. 3. Cholelithiasis. No evidence cholecystitis. Cleared for discharge per Surgery. 4. Dehydration secondary to nausea, vomiting, now resolved. HOSPITAL COURSE: The patient is a 26-year-old female with a history of obesity, otherwise no signif icant medical history. The patient presents with abdominal pain. The patient presents with epigast ellis pain that radiates to the back. The patient had a gallbladder ultrasound that showed sludge, sm all stones in the gallbladder without gallbladder wall thickening or inflammation. There is indeter minate bile duct dilation. The patient had an MRCP that showed cholelithiasis without evidence of c holecystitis, choledocholithiasis or biliary obstruction. Previously seen CBD dilation resolved, ma ybe secondary to recently passed biliary calculus. The patient did have mild leukocytosis. She had no elevation of LFTs. Her UA was within normal limits. The patient's abdominal pain did resolve. She was felt to be stable for discharge. The patient was seen by Dr. Garcia of Surgery, and patien t was felt to be clear for discharge per Dr. Garcia with recommendations for an outpatient cholecyst ectomy. On day of discharge, the patient's vital signs, labs, physical exam were stable. The patie nt had no acute complaints. Questions were answered. CONDITION ON DISCHARGE: Stable. DISPOSITION: Home. MEDICATIONS: The patient is continue usual home medications. No new medications prescribed. FOLLOWUP: The patient is to follow up with her PCP in 1 to 2 weeks, and she will be evaluated for a n outpatient cholecystectomy. Greater than 30 minutes was spent coordinating discharge of patient. Dictated By: FLAVIA ANGLIN MD BS/NTS Conf#: [id number] DID#: [id number]
[2016-08-02] MEDS ORDERED: PANTOPRAZOLE 40 MG INJ IV SCH (06:00)
--- NOTE | 2016-08-02 07:34 | CONS ---
DATE OF ADMISSION: 07/31/2016 DATE OF CONSULTATION: 08/01/2016 HISTORY OF PRESENT ILLNESS: Ms. Vizcaino is a 26-year-old female who presented to the ER yesterda y with epigastric pain radiating to her back. She had some nausea and emesis. She had similar symp toms 2 months ago and was told that she possibly had gastritis. She denies fevers, chills or night sweats. This morning she is feeling well and has no symptoms. PAST MEDICAL HISTORY: Noncontributory. PAST SURGICAL HISTORY: None. MEDICATIONS: She takes: 1. Acetaminophen. 2. Ibuprofen. ALLERGIES: NO KNOWN DRUG ALLERGIES. PHYSICAL EXAMINATION: GENERAL: She is a well-nourished, well-developed female in no apparent distress. VITAL SIGNS: She is afebrile. Vital signs stable. CHEST: Clear to auscultation bilaterally. HEART: Regular rhythm. ABDOMEN: Soft, nontender, nondistended. LABORATORY DATA: Reveal a white count of , hematocrit of 35, platelets of 228. Sodium is 143, potassium 4, chloride 108, CO2 of 28, BUN and creatinine are . LFTs are within normal limits. IMAGING: Ultrasound reveals sludge, small stones in the gallbladder without gallbladder thickening or inflammation. Indeterminate extrahepatic bile duct dilatation with common bile duct measuring 10 mm. ASSESSMENT AND PLAN: Mr. Vizcaino is a 26-year-old female with likely biliary colic or possible choledocholithiasis. 1. MRCP. 2. Further recommendations to follow GI based on MRCP. 3. Will need a laparoscopic cholecystectomy. 4. It is okay to discharge and follow up with me for an outpatient laparoscopic cholecystectomy. Dictated By: WAGNER LUGO/NTS Conf#: [id number] DID#: [id number]
== END 2016-08-01 19:25 | disposition home or self-care (01) | DRG 446 ==
LOC: FTE 07:40 → MS1 10:31
PROVIDERS: ADMIT Family Medicine; ATTEND Family Medicine
DX: K80.20 Calculus of gallbladder without cholecystitis without obstruction (principal); E86.0 Dehydration; F12.90 Cannabis use, unspecified, uncomplicated; E66.9 Obesity, unspecified; Z68.37 Body mass index [BMI] 37.0-37.9, adult; R11.2 Nausea with vomiting, unspecified
CPT/HCPCS: 36415; 74181; 76705; 80048; 80053; 80061; 80076; 81001; 83690; 83735; 84560; 85025; 96374; 96375; 96376; J2270; J2405; J7030

== ENCOUNTER 2017-08-09 22:27 | Emergency (ER) | END 2017-08-10 03:45 | disposition home or self-care (01) ==

== ENCOUNTER 2017-08-10 20:47 | Emergency (ER) | END 2017-08-10 23:57 | disposition left against medical advice (07) ==

== ENCOUNTER 2018-09-20 14:28 | Emergency (ER) | payer OTHER ==
[~2018-09-20] VITALS: Ht 162.6 cm; Wt 65.1 kg
[~2018-09-20 14:28] MED LIST changes: +DICY10CA40 PO; +ONDA8TAB14 PO
[2018-09-20 14:32] VITALS: RESP 18; Ht 162.6 cm; Wt 65.1 kg
[2018-09-20] MEDS ORDERED: LIDOCAINE/MYLANTA 40 ML BTL PO STA (15:59)
[2018-09-20] MEDS ORDERED: ONDANSETRON (ODT) 4 MG TAB ODT STA (15:59)
[2018-09-20] MEDS ORDERED: BELLADONNA/PHENOBARBITAL TAB PO STA (15:59)
--- NOTE | 2018-09-20 16:20 | ERD ---
ER Documentation Chief Complaint Chief Complaint ap with n/v/d x 3 days; intermittent pain HPI 28-year-old female presents complaint of abdominal pain with nausea, vomiting, diarrhea for the past 3 days. States that the pain is intermittent. In addition, patient states she had a cholecystectomy 2 years ago and there is "a piece of plastic" that was supposed to have been removed shortly after the surgery which she is still not gotten removed. She thinks it might be the drain. States the vomitus described as yellow but not green. Denies any fevers, chills, dysuria, hematuria, flank pain, hematemesis, hematochezia. ROS All systems reviewed and are negative except as per history of present illness. Medications Home Meds Active Scripts Dicyclomine HCl (Dicyclomine HCl) 10 Mg Capsule, 10 MG PO TID PRN for ABDOMINAL CRAMPING, #20 CAP Prov:NATASHA VAZ 09/20/18 Ondansetron (Ondansetron Odt) 8 Mg Tab.rapdis, 8 MG PO Q6H PRN for NAUSEA AND/OR VOMITING, #10 TAB Prov:NATASHA VAZ 09/20/18 Acetaminophen* (Tylophen*) 500 Mg Capsule, 1 CAP PO Q6H PRN for PAIN AND OR ELEVATED TEMP, #20 CAP Prov:CHRISTIANO WHITAKER PA-C 05/15/16 Ibuprofen* (Ibuprofen*) 600 Mg Tablet, 600 MG PO Q6, #20 TAB 0 Refills Prov:AMEE NOONAN MD 09/08/15 Allergies Allergies: Coded Allergies: No Known Allergy (Unverified , 09/20/18) PMhx/Soc History of Surgery: Yes (CHOLECYSTECTOMY) Anesthesia Reaction: No Hx Neurological Disorder: No Hx Respiratory Disorders: No Hx Cardiac Disorders: No Hx Psychiatric Problems: No Hx Miscellaneous Medical Probl: No Hx Alcohol Use: Yes (on occassions ) Hx Substance Use: Yes (marijuana on occassions) Hx Tobacco Use: No FmHx Family History: No diabetes, No coronary disease, No other Physical Exam Vitals Vital Signs Date Temp Pulse Resp B/P (MAP) Pulse Ox O2 O2 Flow FiO2 Time Delivery Rate 09/20/18 79 102/51 100 Room Air 18:34 (68) 09/20/18 98.4 87 18 108/62 100 14:32 (77) Physical Exam Const: No acute distress Head: Atraumatic Eyes: Normal Conjunctiva ENT: Normal External Ears, Nose and Mouth. Neck: Full range of motion. No meningismus. Resp: Clear to auscultation bilaterally Cardio: Regular rate and rhythm, no murmurs Abd: Soft, non tender, non distended. Normal bowel sounds. Negative McBurney's. Negative Zamudio's. Patient able to jump up and down on exam. Skin: No petechiae or rashes Back: No midline or flank tenderness Ext: No cyanosis, or edema Neur: Awake and alert Psych: Normal Mood and Affect Result Diagram: 09/20/18 1620 09/20/18 1620 Results 24 hrs Laboratory Tests Test 09/20/18 16:10 09/20/18 16:20 09/20/18 16:25 Urine Color YELLOW Urine Clarity SLIGHTLY CLOUDY Urine pH 5.0 Urine Specific Sweeny 1.025 Urine Ketones 2+ mg/dL Urine Nitrite NEGATIVE mg/dL Urine Bilirubin NEGATIVE mg/dL Urine Urobilinogen NEGATIVE mg/dL Urine Leukocyte Esterase NEGATIVE Marcus/ul Urine Microscopic RBC 3 /HPF Urine Microscopic WBC 0 /HPF Urine Squamous Epithelial Cells FEW /HPF Urine Bacteria FEW /HPF Urine Mucus MANY /HPF Urine Hemoglobin 1+ mg/dL Urine Glucose NEGATIVE mg/dL Urine Total Protein NEGATIVE mg/dl White Blood Count 7.3 10^3/ul Red Blood Count 4.38 10^6/ul Hemoglobin 13.2 g/dl Hematocrit 39.0 % Mean Corpuscular Volume 89.0 fl Mean Corpuscular Hemoglobin 30.1 pg Mean Corpuscular 33.8 g/dl Hemoglobin Concent Red Cell Distribution Width 11.9 % Platelet Count 189 10^3/UL Mean Platelet Volume 11.1 fl Immature Granulocytes % 0.300 % Neutrophils % 87.5 % Lymphocytes % 8.1 % Monocytes % 3.4 % Eosinophils % 0.4 % Basophils % 0.3 % Nucleated Red Blood Cells % 0.0 /100WBC Immature Granulocytes # 0.020 10^3/ul Neutrophils # 6.4 10^3/ul Lymphocytes # 0.6 10^3/ul Monocytes # 0.3 10^3/ul Eosinophils # 0.0 10^3/ul Basophils # 0.0 10^3/ul Nucleated Red Blood Cells # 0.0 10^3/ul Sodium Level 143 mmol/L Potassium Level 3.6 mmol/L Chloride Level 104 mmol/L Carbon Dioxide Level 27 mmol/L Anion Gap 12 Blood Urea Nitrogen 6 mg/dl Creatinine 0.54 mg/dl Est Glomerular Filtrat > 60 mL/min Rate mL/min Glucose Level 98 mg/dl Calcium Level 9.1 mg/dl Total Bilirubin 0.7 mg/dl Direct Bilirubin 0.00 mg/dl Indirect Bilirubin 0.7 mg/dl Aspartate Amino 20 IU/L Transf (AST/SGOT) Alanine 15 IU/L Aminotransferase (ALT/SGPT) Alkaline Phosphatase 77 IU/L Total Protein 8.3 g/dl Albumin 4.5 g/dl Globulin 3.80 g/dl Albumin/Globulin Ratio 1.18 Lipase 66 U/L POC Beta HCG, Qualitative NEGATIVE Current Medications Medications Dose Sig/Domenic Start Time Status Last (Trade) Ordered Route PRN Stop Time Admin Dose Reason Admin 40 ml ONCE STAT 09/20/18 DC 09/20/18 Miscellaneous PO 15:59 16:17 Medication 09/20/18 16:03 (Gi Cocktail (2)) Belladonna/ 2 tab ONCE STAT 09/20/18 DC 09/20/18 Phenobarbital PO 15:59 16:16 () 09/20/18 16:03 Ondansetron 8 mg ONCE STAT 09/20/18 DC 09/20/18 HCl (Zofran ODT 15:59 16:17 Odt) 09/20/18 16:03 Procedures/MDM MDM: Patient's labs within normal limits except for some neutrophilia. Patient had no white count. Lipase and liver enzymes were normal. Patient was given GI cocktail with zofran and symptoms were resolved. Patient was likely having gastroenteritis. I have low suspicion for acute coronary syndrome, AAA, mesenteric ischemia, lower lobe pneumonia, DKA, bowel perforation, cholecystitis, choledocholithiasis, ascending cholangitis, hepatic abscess, pancreatitis, PUD, splenic rupture, diverticulitis, pyelonephritis, nephrolithiasis, appendicitis, , ectopic , PID, ovarian torsion or tubo-ovarian abscess. At this time, patient is stable for discharge and outpatient management. I have instructed the patient to follow-up with his/her primary care physician in 1-2 days as well as return to ER in 24 hours for follow-up exam. I have discussed with the patient the possibility of needing to see a specialist for further wor kup and imaging studies if symptoms persist. I have instructed the patient to promptly return to the ER for any new or worsening symptoms including but not limited to increased pain, fever, nausea, vomiting, weakness or LOC. The patient and/or family expressed understanding of and agreement with this plan. All questions were answered. Home care instructions were provided. Communication with patient both during the exam and instructions for discharge were performed with using a graphic manager . Patient gave verbal confirmation to the practitioner, through the graphic manager, that they understood everything that was being said to them. DISCLAIMER: Inadvertent spelling and grammatical errors are likely due to EHR/dictation software use and do not reflect on the overall quality of patient care. Also, please note that the electronic time recorded on this note does not necessarily reflect the actual time of the patient encounter. Departure Diagnosis: Primary Impression: Gastroenteritis Condition: Stable [id number] Sep 20, 2018 16:20
[2018-09-20 18:34] VITALS: BP 102/51; PULSE 79
== END 2018-09-20 18:34 | disposition home or self-care (01) ==
LOC: FTE 14:28
DX: K52.9 Noninfective gastroenteritis and colitis, unspecified (principal); Z87.891 Personal history of nicotine dependence
CPT/HCPCS: 36415; 80053; 81001; 81025; 83690; 85025; Z7502; Z7610; 99283